=== PATIENT | female | born 1985 | race Caucasian/White ===

== ENCOUNTER → 2020-05-15 | Outpatient (CLI) | payer OTHER ==
--- NOTE | 2020-05-15 15:42 | RAD ---
INDICATION: Reason: worsening right flank pain / Spl. Instructions: / History: . COMPARISON: None. TECHNIQUE: Axial CT images obtained through the abdomen and pelvis without contrast. Limited assessment of solid organ structures and vasculature secondary to lack of intravenous contrast.. One or more of the following individualized dose reduction techniques were utilized for this examination: 1. Automated exposure control; 2. Adjustment of the mA and/or kV according to patient size; 3. Use of iterative reconstruction technique. FINDINGS: 2 mm left lung base nodule. Abdominal aorta is not aneurysmal. Small fat-containing umbilical hernia. No intrahepatic bile duct dilation. Subcentimeter low-density lesion left lobe of the liver which is a common finding but not well characterized on this exam. Limited assessment of pancreas without contrast. Spleen unremarkable. No left-sided hydronephrosis. Urinary bladder wall minimally prominent for the degree of distention. Intrauterine device is seen within the uterus. No right-sided hydronephrosis. Calcifications in the pelvis could be secondary to phleboliths. Mild colonic diverticulosis. No periappendiceal inflammatory changes. No dilated loops of bowel to suggest obstruction. Pars defects L5 IMPRESSION: * No evidence of bowel obstruction or appendicitis. * No hydronephrosis. Electronically signed by: Rod Chavez MD (05/15/2020 3:39 PM) [id number]
== END ==
LOC: CT 14:56
DX: K42.9 Umbilical hernia without obstruction or gangrene (principal); N32.89 Other specified disorders of bladder; I87.8 Other specified disorders of veins; K57.30 Diverticulosis of large intestine without perforation or abscess without bleeding; Z97.5 Presence of (intrauterine) contraceptive device
CPT/HCPCS: 74176